=== PATIENT | female | born 1950 | race Caucasian/White ===

== ENCOUNTER 2016-11-14 10:18 | Emergency (ER) | payer MEDICARE, BC ==
[2016-11-14 10:27] VITALS: BP 125/82
[2016-11-14 11:08] LABS: CHLORIDE,CL 98 mEq/L (98-106); SODIUM,NA 140 mEq/L (136-145)
--- NOTE | 2016-11-14 11:27 | EDM.PDOC ---
ED HPI GENERAL MEDICAL PROBLEM - General Chief Complaint: General Stated Complaint: No BM for 4 days, frequent urination Time Seen by Provider: 11/14/16 11:02 Source of Information: Reports: Patient, Family History Limitations: Reports: No limitations - History of Present Illness INITIAL COMMENTS - FREE TEXT/NARRATIVE: This patient is a 66 year old female that presents to the ER. Patient is nonverbal, but does use hand signals to assist in history taking. 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 The patient reports that she has not had a good bowel movement in 4 days. The reports the patient said she has had a fullness sensation. He reports she does have a peg tube and does get tube feedings. He reports he has been giving her half dose of her Miralax. He reports he tried giving her an enema at home with some success. However, the patient is not able to lay flat. She is in a sitting position making enema very difficult. He reports she has had a mild increase in urinary frequency the past few days as well. They deny patient having vomiting, fever, severe abdominal pain. She is passing gas. Will draw labs, kub, ua. Onset Date: 11/10/16 Duration: Day(s): (4) Location: Reports: abdomen Quality: Reports: Other (fullness) Severity: mild Improves with: Reports: None Worsens with: Reports: None Associated Symptoms: Denies: confusion, chest pain, cough, cough w sputum, diaphoresis, fever/chills, headaches, loss of appetite, malaise, nausea/vomiting , rash, seizure, shortness of breath, syncope, weakness Abdomen Pain Score (Numeric/FACES): 5 - Related Data Allergies Allergy/AdvReac Type Severity Reaction Status Date / Time No Known Allergies Allergy Verified 11/14/16 10:27 Home Meds: Home Meds Aspirin 81 mg PO 1700 07/18/16 [History] Losartan Potassium [Cozaar] 50 mg PO BID 07/18/16 [History] Polyethylene Glycol 3350 [MiraLAX] 8.5 gm PO BEDTIME 07/18/16 [History] Sertraline [Zoloft] 50 mg PO DAILY 07/18/16 [History] diphenhydrAMINE [Benadryl] 50 mg PO BEDTIME 07/18/16 [History] traMADol HCl [Tramadol HCl] 50 mg PO BID 07/18/16 [History] Lifitegrast [Xiidra] 1 drop EYEBOTH BID 07/31/16 [History] Phenyleph/Mineral Oil/Petrolat [Preparation H Ointment] 1 applic TOP BEDTIME 09/03 [History] Tonic Water 2 oz PEGTUBE 0900 07/31/16 [History] Water 6 oz PEGTUBE 0900 07/31/16 [History] Water 8 oz PEGTUBE QID 07/31/16 [History] guaiFENesin [Allfen] 400 mg PO BID 07/31/16 [History] guaiFENesin [Guaifenesin] 200 mg PO 1300 07/31/16 [History] guaiFENesin [Guaifenesin] 200 mg PO 1700 07/31/16 [History] Lactose-Reduced Food/Fiber [Isosource 1.5 [place]aston Tube Feed] 12 oz PEGTUBE QID 11/14 [History] Trospium Chloride 20 mg PO BID 11/14/16 [History] Past Medical History HEENT History: Reports: Other (see below) Other HEENT History: dry eyes; uses eye drops Cardiovascular History: Reports: Hypertension BIT SHARPENER History: Reports: Dysfunctional uterine bleeding, Other (see below) Other OB/BYN History: bladder repair Musculoskeletal History: Reports: Back pain, chronic Neurological History: Reports: Other (see below) Other Neuro History: ALS Psychiatric History: Reports: Depression - Past Surgical History HEENT Surgical History: Reports: None Cardiovascular Surgical History: Reports: Cardiac Ablation Female Surgical History: Reports: Hysterectomy, Other (see below) Other Female Surgeries/Procedures: twisted fallopian tube Musculoskeletal Surgical History: Reports: Other (see below) Other Musculoskeletal Surgeries/Procedures:: ablation to neck to stop nerve pain ; bilateral on both sides Social & Family History - Family History Family Medical History: Noncontributory Cardiac: Reports: CAD, Hypertension - Tobacco Use Smoking Status *Q: Former Smoker - Recreational Drug Use Recreational Drug Use: No - Living Situation & Occupation Living situation: Reports: , with family ED ROS GENERAL - Review of Systems Review Of Systems: See Below Constitutional: Reports: no symptoms HEENT: Reports: No symptoms Respiratory: Reports: no symptoms Cardiovascular: Reports: No symptoms Endocrine: Reports: no symptoms GI/Abdominal: Reports: Abdominal pain, Constipation, Distension. Denies: Diarrhea, Nausea, Vomiting : Reports: no symptoms Musculoskeletal: Reports: no symptoms Skin: Reports: no symptoms Neurological: Reports: no symptoms Psychiatric: Reports: No symptoms Hematologic/Lymphatic: Reports: no symptoms Immunologic: Reports: no symptoms ED EXAM, GENERAL - Physical Exam Exam: See Below Exam Limited By: No limitations General Appearance: alert, WD/WN, no apparent distress Eye Exam: bilateral eye: normal inspection, PERRL Ears: normal external exam, normal canal, hearing grossly normal, normal TMs Ear Exam: bilateral ear: auricle normal, canal normal, TM normal Nose: normal inspection, normal mucosa, no blood Throat/Mouth: Normal inspection, Normal lips, Normal teeth, Normal gums, Normal oropharynx, Normal voice, No airway compromise Head: atraumatic, normocephalic Neck: normal inspection, supple, non-tender, full range of motion Respiratory/Chest: no respiratory distress, lungs clear, normal breath sounds, no accessory muscle use Cardiovascular: normal peripheral pulses, regular rate, rhythm, no edema, no gallop, no JVD, no murmur, no rub Peripheral Pulses: 2+: posterior tibial (L), posterior tibial (R), dorsalis pedis (L), dorsalis pedis (R) GI/Abdominal: normal bowel sounds, soft, distended. No: guarding, rigid, rebound Back Exam: normal inspection, full range of motion. No: CVA tenderness (L), CVA tenderness (R) Extremities: normal inspection, normal range of motion, non-tender, no pedal edema, normal capillary refill Neurological: alert, oriented Psychiatric: normal affect, normal mood Skin Exam: Warm, Dry, Intact, Normal color, No rash Lymphatic: no adenopathy Course - Vital Signs Last Recorded V/S: Last Vital Signs Temp 99.0 F 11/14/16 10:20 Pulse 123 H 11/14/16 10:20 Resp 20 11/14/16 10:20 BP 125/82 11/14/16 10:20 Pulse Ox 95 11/14/16 10:20 - Orders/Labs/Meds Orders: Active Orders 24 hr Category Date Time Status KUB [Abdomen 1V Flat] [CR] Stat Exams 11/14/16 11:08 Taken CULTURE URINE [RM] Stat Lab 11/14/16 10:00 Received Labs: Laboratory Tests 11/14/16 11/14/16 11/14/16 Range/Units 10:45 10:45 10:45 WBC 9.3 (5.0-10.0) 10^3/uL RBC 4.78 (4.00-5.50) 10^6/uL Hgb 13.9 (12.0-16.0) g/dL Hct 45.0 (37.0-47.0) % MCV 94.1 H (82.0-94.0) fL MCH 29.1 (27.0-32.0) pg MCHC 30.9 L (33.0-38.0) g/dL RDW Coeff of Wesley 14.0 (11.0-15.0) % Plt Count 315 (150-400) 10^3/uL Neut % (Auto) 81.5 (35-85) % Lymph % (Auto) 11.1 (10-55) % [facility] % (Auto) 7.2 (0-16) % Eos % (Auto) 0 (0-5) % Baso % (Auto) 0.2 (0-3) % Neut # 7.59 H (1.80-7.00) 10^3/uL Lymph # 1.03 (1.00-4.80) 10^3/uL [facility] # 0.67 (0.00-0.80) 10^3/uL Eos # 0.00 (0.00-0.45) 10^3/uL Baso # 0.02 10^3/uL Sodium 140 (136-145) mEq/L Potassium 4.2 (3.5-5.0) mEq/L Chloride 98 (98-106) mEq/L Carbon Dioxide 33 H (21-32) mmol/L BUN 15 (7-18) mg/dL Creatinine 0.6 (0.6-1.0) mg/dL Est Cr Clr Drug Dosing 88.48 mL/min Estimated GFR (MDRD) > 60 (>=60) mL/min Glucose 195 H D (75-99) mg/dL Calcium 9.9 (8.4-10.1) mg/dL Total Bilirubin 0.9 (0.0-1.0) mg/dL AST 41 H (15-37) U/L ALT 108 H (12-78) U/L Alkaline Phosphatase 73 (46-116) U/L Total Protein 8.0 (6.4-8.2) g/dL Albumin 3.8 (3.4-5.0) g/dL Urine Color Yellow (YELLOW) Urine Appearance Clear (CLEAR) Urine pH 7.0 (4.5-8.0) Ur Specific [place] 1.014 (1.003-1.020) Urine Protein Negative (NEGATIVE) mg/dL Urine Glucose (UA) Negative (NEGATIVE) mg/dL Urine Ketones Negative (NEGATIVE) mg/dL Urine Occult Blood Trace-lysed H (NEGATIVE) Urine Nitrite Negative (NEGATIVE) Urine Bilirubin Negative (NEGATIVE) Urine Urobilinogen 0.2 (0.2-1.0) EU/dL Ur Leukocyte Esterase Moderate H (NEGATIVE) Urine RBC Not seen (0-5) /HPF Urine WBC 5-10 H (0-5) /HPF Ur Epithelial Cells Few H (NOT SEEN) /HPF Amorphous Sediment Moderate H (NOT SEEN) /HPF Meds: Medications Discontinued Medications Generic Name Dose Route Start Last Admin Trade Name Freq PRN Reason Stop Dose Admin Magnesium Citrate 75 ml 11/14/16 11:54 11/14/16 12:08 Citrate Of Magnesia PO 11/14/16 11:55 75 ml ONETIME ONE Administration - Radiology Interpretation Free Text/Narrative:: KUB: Constipation Departure - Departure Time of Disposition: 12:16 Disposition: Home, Self-Care 01 Condition: good Clinical Impression: Constipation Qualifiers: Constipation type: unspecified constipation type Qualified Code(s): K59.00 - Constipation, unspecified UTI (urinary tract infection) Qualifiers: Urinary tract infection type: site unspecified Hematuria presence: without hematuria Qualified Code(s): N39.0 - Urinary tract infection, site not specified Instructions: Constipation, Adult, Urinary Tract Infection, Adult Referrals: Steven Banda MD [Primary Care Provider] - Forms: ED Department Discharge Additional Instructions: Followup with your primary care provider Return to the ER for worsening of condition or any emergent concerns such as increase in pain, fever, vomiting. Amoxicillin 400/5ml take 6.5ml three times a day for 7 days #suff qty no refill Magnesium Citrate 300ml bottle: Given 75ml in the ER. If no success with having a BM may give 75ml every 4 hours until bottle finished. - My Orders Last 24 Hours: My Active Orders 11/14/16 10:00 CULTURE URINE [RM] Stat 11/14/16 11:08 KUB [Abdomen 1V Flat] [CR] Stat - Assessment/Plan Last 24 Hours: My Active Orders 11/14/16 10:00 CULTURE URINE [RM] Stat 11/14/16 11:08 KUB [Abdomen 1V Flat] [CR] Stat Plan: PLEASE SEE RN NOTE FOR PFSH.
[2016-11-14] MEDS ORDERED: Magnesium Citrate Solution 296 ML Bottle PO ONE (11:54)
== END 2016-11-14 12:30 | disposition home or self-care (01) ==
LOC: CC.ED 10:18
DX: N39.0 Urinary tract infection, site not specified (principal); K59.00 Constipation, unspecified; I10 Essential (primary) hypertension; F32.9 Major depressive disorder, single episode, unspecified; Z87.891 Personal history of nicotine dependence; Z79.82 Long term (current) use of aspirin; Z79.899 Other long term (current) drug therapy; Z90.710 Acquired absence of both cervix and uterus
CPT/HCPCS: 36415; 74000; 80053; 81001; 85025; 87086; 99283; A9270